=== PATIENT | male | born 1990 | race Two or more races ===

== ENCOUNTER 2023-12-27 20:08 | Emergency (ER) | payer OTHER ==
[~2023-12-27] VITALS: Ht 172.7 cm; Wt 94.0 kg
[2023-12-27 21:49] LABS: Basophils # (auto) 0 10 ^3/uL (0-0.2); Basophils % (auto) 0.1 % (0.0-2.0); Eosinophils # (auto) 0.1 10 ^3/uL (0-0.8); Eosinophils % (auto) 0.3 % (0.0-7.0); Hematocrit 49.4 % (41.0-53.0); Hemoglobin 16.7 g/dL (13.5-17.5); Lymphocytes # (auto) 0.4 10 ^3/uL (0.4-5.4); Lymphocytes % (auto) 2.9 % (10.0-50.0); Mean Corpuscular Hemoglobin 30.9 pg (28.0-32.0); Mean Corpuscular Hgb Conc. 33.9 g/dL (32.0-36.0); Mean Corpuscular Volume 91.3 fL (80.0-100.0); Monocytes # (auto) 0.7 10 ^3/uL (0-1.3); Monocytes % (auto) 4.8 % (0.0-12.0); Neutrophils # (auto) 13.4 10 ^3/uL (1.6-8.6); Neutrophils % (auto) 91.9 % (37.0-80.0); Nucleated Red Blood Cells % 0.3 %; Red Blood Cells 5.41 10^6/uL (4.5-5.90); Red Cell Distribution Width 13.4 % (11.8-14.3); White Blood Cell 14.5 10^3/uL (4.4-10.8)
[2023-12-27 21:57] LABS: Chloride 107 mmol/L (98-107); Potassium 3.8 mmol/L (3.5-5.1); Sodium 140 mmol/L (136-145)
[2023-12-27 21:58] LABS: Anion Gap 8 (5-15); Carbon Dioxide 25 mmol/L (20-30)
[2023-12-27 21:59] LABS: Calcium 9.5 mg/dL (8.7-10.4)
[2023-12-27 22:03] LABS: BUN/Creatinine Ratio 8.5 (10.0-20.0); Blood Urea Nitrogen 11 mg/dL (9-23); Glucose 120 mg/dL (74-106)
[2023-12-27 22:04] LABS: Lipase 30 U/L (12-53)
[2023-12-27 22:07] LABS: Lactic Acid w/Reflex 2.1 mmol/L (0.4-2.0)
[2023-12-27] MEDS: ACETAMINOPHEN 500 MG TAB PO ONE (22:08)
[2023-12-27] MEDS: ONDANSETRON ODT 4 MG TAB PO ONE (22:09)
[2023-12-27] MEDS: DICYCLOMINE HCL (10MG/ML) 2 ML AMPULE IM ONE (22:09)
[2023-12-27 22:11] LABS: Urine Bacteria None Seen /hpf (None Seen)
[2023-12-27 22:27] LABS: Urine Blood 3+ /uL (Negative); Urine Clarity Clear (Clear); Urine Color Yellow (Yellow); Urine Mucus FEW (None Seen); Urine Protein, UAD TRACE (Negative); Urine Specific Gravity 1.024 (1.001-1.035); Urine Urobilinogen Normal (Negative); Urine WBC 3 /hpf (0 - 3)
[2023-12-27] MEDS: SODIUM CHLORIDE 0.9% 1,000 ML IV ONE (23:15)
[2023-12-27] MEDS: cefTRIAXone 1GM/50ML D5W 50 ML IV ONE (23:55)
[2023-12-28 00:20] LABS: Albumin 4.3 g/dL (3.2-4.8); Bilirubin, Total 1.8 mg/dL (0.2-1.0); Phosphorus 1.5 mg/dL (2.4-5.1); Total Protein 7.9 g/dL (5.7-8.2)
[2023-12-28 01:23] VITALS: BP 119/71; PULSE 95; RESP 21; TEMP 99.1; O2SAT 98
== END 2023-12-28 01:53 | disposition short-term general hospital (02) ==
LOC: ER 20:08
DX: D72.829 Elevated white blood cell count, unspecified (principal); R31.9 Hematuria, unspecified; R91.1 Solitary pulmonary nodule; R74.02 Elevation of levels of lactic acid dehydrogenase [LDH]
CPT/HCPCS: 36415; 74176; 80048; 81001; 82040; 82247; 83605; 83690; 84075; 84100; 84155; 84450; 85025; 87086; 96361; 96365; 96372; 99285; J0500; J0696; J7030; Q0162